=== PATIENT | female | born 1960 | race Caucasian/White ===

== ENCOUNTER 2018-12-12 09:14 | Emergency (ER) | payer BC ==
[~2018-12-12] VITALS: Ht 167.6 cm; Wt 70.5 kg
[2018-12-12 09:20] VITALS: TEMP 98.4
[2018-12-12] MEDS ORDERED: PROLIA60 MG/ML SQ (09:29)
[2018-12-12] MEDS ORDERED: OMNICEF 300MG300 MG PO (09:31)
[2018-12-12] MEDS ORDERED: PREDNISONE20 MG PO (09:31)
[2018-12-12 09:49] VITALS: BP 141/101; PULSE 96
== END 2018-12-12 09:49 | disposition home or self-care (01) ==
LOC: COL.ER 09:14
DX: J01.90 Acute sinusitis, unspecified (principal)
CPT/HCPCS: J7512